=== PATIENT | female | born 1935 | race Caucasian/White ===

== ENCOUNTER 2021-02-03 11:28 | Observation (INO) ==
[2021-02-03 12:03] LABS: Bilirubin,Urine Negative (Negative); Blood,Urine Small (Negative); Clarity,Urine Clear (Clear); Color,Urine Yellow (Yellow); Glucose,Urine (UA) Normal (Normal); Ketones,Urine Negative (Negative); Leukocyte Esterase,Urine Negative (Negative); Nitrite,Urine Negative (Negative); Protein,Urine Negative (Neg-Trace); Specific Gravity,Urine 1.025 (1.010-1.025); Urobilinogen,Urine Normal (Normal)
[2021-02-03] MEDS: 0.9 % Sodium Chloride 1,000 ML IVC SCH ×2 (12:05→21:16)
[2021-02-03 12:20] LABS: Basophils % 0.9 %; Eosinophils % 0.7 %; Hematocrit 41.8 % (35.3-44.9); Hemoglobin 13.6 g/dL (11.5-15.4); Immature Granulocytes % 0.2 % (0-4); Lymphocytes # 1.2 K/mcL (0.6-4.6); Lymphocytes % 27.1 %; Mean Corpuscular HGB Conc 32.5 g/dL (31.6-35.5); Mean Corpuscular Hemoglobin 31.8 pg (28.0-33.3); Mean Corpuscular Volume 97.7 fL (83.0-100.0); Mean Platelet Volume 11.3 fL (9.4-12.4); Monocytes # 0.5 K/mcL (0.0-1.3); Monocytes % 10.5 %; Neutrophils # 2.7 K/mcL (1.6-8.9); Platelet Count 211 K/mcL (140-400); Red Blood Count 4.28 M/mcL (3.82-4.97); Red Cell Distribution Width 12.2 % (11.5-14.5); Segmented Neutrophils % 60.6 %; White Blood Count 4.4 K/mcL (4.3-11.1)
[2021-02-03] MEDS ORDERED: Naloxone 0.4 MG/ML INJ IVP PRN (12:24)
[2021-02-03] MEDS ORDERED: Acetaminophen 325 MG TABLET PO PRN (12:24)
[2021-02-03] MEDS ORDERED: Ondansetron 4 MG/2 ML VIAL IVP PRN (12:24)
[2021-02-03 12:54] LABS: Troponin I < 0.03 ng/mL (< 0.04)
[2021-02-03 13:20] LABS: Bacteria,Urine Few per hpf (None-Few); Mucus,Urine Few per lpf (None-Few); Squamous Epithelial Cell,Urine Few per hpf (None-Few); WBC,Urine 0-3 per hpf (0-3)
[2021-02-03 14:52] LABS: BUN/Creatinine Ratio 18 (6-26); Bilirubin,Direct 0.1 mg/dL (0.0-0.2); Bilirubin,Total 0.6 mg/dL (0.3-1.0); Blood Urea Nitrogen 18 mg/dL (8-23); Calcium 9.3 mg/dL (8.6-10.3); Carbon Dioxide 30 mEq/L (23-29); Chloride 103 mEq/L (98-107); Glucose 94 mg/dL (70-105); Osmolality,Calculated 294 (280-300); Potassium 3.7 mEq/L (3.5-5.1); Sodium 141 mEq/L (136-145); eGFR For African Americans > 60 (> 60); eGFR For Non-African Americans 54 (> 60)
[2021-02-03 14:53] LABS: Alanine Aminotransferase 15 Units/L (7-52); Albumin 3.8 g/dL (3.5-5.7); Albumin/Globulin Ratio 1.2 (1.1-2.2); Alkaline Phosphatase 96 Units/L (34-104); Aspartate Amino Transferase 32 Units/L (13-39); Bilirubin,Indirect 0.5 mg/dL (0.0-1.0); Globulin 3.3 g/dL (2.4-3.5); Total Protein 7.1 g/dL (6.4-8.9)
[2021-02-03] MEDS ORDERED: *HR* LORazepam 0.5 MG TABLET PO PRN (15:04)
[2021-02-03] MEDS: Mirtazapine 15 MG TABLET PO SCH (20:45)
[2021-02-03] MEDS: lisinopriL 10 MG TABLET PO SCH (20:52)
[2021-02-03] MEDS ORDERED: Mirtazapine 15 MG TABLET PO SCH (21:00)
[2021-02-04] MEDS: 0.9 % Sodium Chloride 1,000 ML IVC SCH ×2 (09:43→18:01)
[2021-02-04] MEDS: ARIPiprazole 5 MG TABLET PO SCH (09:44)
[2021-02-04] MEDS: lisinopriL 10 MG TABLET PO SCH (09:44)
[2021-02-04] MEDS: Mirtazapine 15 MG TABLET PO SCH (20:39)
[2021-02-04] MEDS: *HR* LORazepam 0.5 MG TABLET PO SCH (20:39)
[2021-02-05 06:10] LABS: Hematocrit 35.5 % (35.3-44.9); Hemoglobin 11.9 g/dL (11.5-15.4); Mean Corpuscular HGB Conc 33.5 g/dL (31.6-35.5); Mean Corpuscular Hemoglobin 32.3 pg (28.0-33.3); Mean Corpuscular Volume 96.5 fL (83.0-100.0); Mean Platelet Volume 10.9 fL (9.4-12.4); Platelet Count 197 K/mcL (140-400); Red Blood Count 3.68 M/mcL (3.82-4.97); Red Cell Distribution Width 12.1 % (11.5-14.5); White Blood Count 5.6 K/mcL (4.3-11.1)
[2021-02-05 06:31] LABS: BUN/Creatinine Ratio 13 (6-26); Blood Urea Nitrogen 12 mg/dL (8-23); Calcium 8.8 mg/dL (8.6-10.3); Carbon Dioxide 31 mEq/L (23-29); Chloride 102 mEq/L (98-107); Glucose 91 mg/dL (70-105); Osmolality,Calculated 287 (280-300); Potassium 3.5 mEq/L (3.5-5.1); Sodium 139 mEq/L (136-145); eGFR For African Americans > 60 (> 60); eGFR For Non-African Americans 57 (> 60)
[2021-02-05] MEDS: *HR* LORazepam 0.5 MG TABLET PO SCH ×2 (09:09→20:03)
[2021-02-05] MEDS: ARIPiprazole 5 MG TABLET PO SCH (09:09)
[2021-02-05] MEDS: lisinopriL 10 MG TABLET PO SCH (09:09)
[2021-02-05] MEDS: Mirtazapine 15 MG TABLET PO SCH (20:03)
[2021-02-06] MEDS: ARIPiprazole 5 MG TABLET PO SCH (09:03)
[2021-02-06] MEDS: lisinopriL 10 MG TABLET PO SCH (09:03)
[2021-02-06] MEDS: *HR* LORazepam 0.5 MG TABLET PO SCH ×2 (09:03→20:45)
[2021-02-06] MEDS: Mirtazapine 15 MG TABLET PO SCH (20:46)
[2021-02-07 07:14] LABS: Basophils % 0.4 %; Eosinophils # 0.1 K/mcL (0.0-0.6); Eosinophils % 1.5 %; Hematocrit 35.2 % (35.3-44.9); Hemoglobin 11.7 g/dL (11.5-15.4); Immature Granulocytes % 0.4 % (0-4); Lymphocytes # 1.4 K/mcL (0.6-4.6); Lymphocytes % 31.1 %; Mean Corpuscular HGB Conc 33.2 g/dL (31.6-35.5); Mean Corpuscular Hemoglobin 32.2 pg (28.0-33.3); Mean Platelet Volume 11.3 fL (9.4-12.4); Monocytes # 0.6 K/mcL (0.0-1.3); Monocytes % 12.1 %; Neutrophils # 2.5 K/mcL (1.6-8.9); Platelet Count 190 K/mcL (140-400); Red Blood Count 3.63 M/mcL (3.82-4.97); Red Cell Distribution Width 12.2 % (11.5-14.5); Segmented Neutrophils % 54.5 %; White Blood Count 4.6 K/mcL (4.3-11.1)
[2021-02-07 07:45] VITALS: BP 122/76
[2021-02-07 08:08] LABS: BUN/Creatinine Ratio 21 (6-26); Blood Urea Nitrogen 20 mg/dL (8-23); Calcium 8.6 mg/dL (8.6-10.3); Carbon Dioxide 32 mEq/L (23-29); Chloride 103 mEq/L (98-107); Glucose 96 mg/dL (70-105); Osmolality,Calculated 294 (280-300); Potassium 3.8 mEq/L (3.5-5.1); Sodium 141 mEq/L (136-145); eGFR For African Americans > 60 (> 60); eGFR For Non-African Americans 56 (> 60)
[2021-02-07 09:41] LABS: VBG Ionized Calcium 1.17 mmol/L (1.15-1.35)
[2021-02-07] MEDS: ARIPiprazole 5 MG TABLET PO SCH (09:49)
[2021-02-07] MEDS: *HR* LORazepam 0.5 MG TABLET PO SCH (09:50)
[2021-02-07] MEDS: lisinopriL 10 MG TABLET PO SCH (09:50)
== END 2021-02-07 17:53 ==
LOC: INPPIK 11:28 → EMEROOPIK 11:28 → INPPIK 14:04
PROVIDERS: ADMIT Family Medicine; ATTEND Family Medicine